=== PATIENT | female | born 1965 | race African-American/Black ===

== ENCOUNTER 2019-04-14 08:48 | Emergency (ER) | payer OTHER ==
[~2019-04-14] VITALS: Ht 170.2 cm; Wt 55.3 kg
[2019-04-14 10:30] VITALS: BP 151/75
== END 2019-04-14 10:30 | disposition home or self-care (01) ==
LOC: ED 08:48
DX: G50.0 Trigeminal neuralgia (principal)

== ENCOUNTER 2020-05-01 08:58 | Emergency (ER) | payer OTHER ==
[~2020-05-01] VITALS: Ht 172.7 cm; Wt 63.0 kg
[2020-05-01 09:06] VITALS: Ht 172.7 cm; Wt 63.0 kg
[2020-05-01 10:31] VITALS: BP 119/61
== END 2020-05-01 10:48 | disposition home or self-care (01) ==
LOC: ED 08:58
DX: S22.31XA Fracture of one rib, right side, initial encounter for closed fracture (principal); W01.0XXA Fall on same level from slipping, tripping and stumbling without subsequent striking against object, initial encounter; Y93.89 Activity, other specified; Y92.89 Other specified places as the place of occurrence of the external cause; Y99.8 Other external cause status